=== PATIENT | male | born 2000 | race African-American/Black ===

== ENCOUNTER 2021-11-11 16:52 | Emergency (ER) | payer OTHER ==
[~2021-11-11] VITALS: Ht 188 cm; Wt 100.0 kg
[2021-11-11 16:53] VITALS: BP 146/88
[2021-11-11] MEDS ORDERED: KETOROLAC TROMETHAMINE 10 MG TAB PO ONE (19:05)
== END 2021-11-11 20:46 | disposition home or self-care (01) ==
LOC: M ED 16:52
DX: S93.402A Sprain of unspecified ligament of left ankle, initial encounter (principal); Y92.9 Unspecified place or not applicable; Y93.67 Activity, basketball; Y99.9 Unspecified external cause status

== ENCOUNTER 2023-07-03 17:52 | Emergency (ER) | payer OTHER ==
[~2023-07-03] VITALS: Ht 188 cm; Wt 116.2 kg
[2023-07-03] MEDS ORDERED: SUMA100T2 PO (18:03)
[2023-07-03 19:46] LABS: BASO % 0.5 % (0.0-1.0); EOS # 0.3 10^3/uL (0.0-0.5); EOS % 3.8 % (0.0-3.0); HEMATOCRIT 45.7 % (42.0-52.0); HEMOGLOBIN 15.1 g/dl (13.5-17.5); LYMPH # 2.9 10^3/uL (1.5-5.0); MEAN CORPUSCULAR VOLUME 87.9 fl (80.0-96.0); MONO # 0.4 10^3/uL (0.0-0.8); MONO % 5.9 % (2.0-8.0); NEUTROPHILS # 3.8 10^3/uL (1.5-8.5); NEUTROPHILS % 50.7 % (36.0-66.0); PLATELET COUNT, AUTOMATED 333 10^3/uL (150-450); WHITE BLOOD COUNT 7.4 10^3/uL (4.0-10.0)
[2023-07-03 20:09] LABS: C REACTIVE PROTEIN QUANTITATIV < 0.40 MG/DL (<1.0)
[2023-07-03 20:11] LABS: BLOOD UREA NITROGEN 26 MG/DL (9-23); CALCIUM LEVEL 9.4 MG/DL (8.5-10.1); CARBON DIOXIDE LEVEL 31 MMOL/L (20-31); CHLORIDE LEVEL 101 MMOL/L (98-107); CREATININE FOR GFR 1.25 MG/DL (0.70-1.30); GLOMERULAR FILTRATION RATE > 60.0 (>60); GLUCOSE, FASTING 85 MG/DL (60-100); POTASSIUM SERUM 4.4 MMOL/L (3.5-5.1); SODIUM LEVEL 138 MMOL/L (136-145)
[2023-07-03] MEDS ORDERED: NS 1,000 ML IV ONE (21:20)
[2023-07-03] MEDS ORDERED: KETOROLAC 30 MG/ML 1ML VIAL IV ONE (21:20)
[2023-07-03] MEDS ORDERED: METOCLOPRAMIDE INJ 10MG/2ML VIAL IV ONE (21:20)
[2023-07-03 21:48] LABS: ERYTHROCYTE SEDIMENTATION RATE 8 mm/hr (0-15)
[2023-07-03 22:31] LABS: CK-MB VALUE MASS < 1.0 NG/ML (<3.6)
[2023-07-03 22:33] LABS: CPK CREATINE PHOSPHOKINASE 242 U/L (46-171); MB/CK RELATIVE INDEX 0.41 (< OR =4)
[2023-07-03 22:35] LABS: FREE T4 1.02 NG/DL (0.89-1.76)
[2023-07-03 23:12] VITALS: BP 116/76; TEMP 97.9; O2SAT 100
== END 2023-07-03 23:27 | disposition home or self-care (01) ==
LOC: M ED 17:52
DX: G43.909 Migraine, unspecified, not intractable, without status migrainosus (principal); I44.0 Atrioventricular block, first degree; I49.40 Unspecified premature depolarization; J45.909 Unspecified asthma, uncomplicated; Z79.818 Long term (current) use of other agents affecting estrogen receptors and estrogen levels
CPT/HCPCS: 70450; 80048; 82550; 82553; 83735; 84439; 84443; 84484; 85025; 85652; 86140; 93005; 96361; 96374; 96375; 99284; J1885; J2765